=== PATIENT | female | born 1945 | race Caucasian/White ===

== ENCOUNTER 2017-12-17 13:05 | Outpatient (CLI) | payer OTHER | END 2017-12-17 14:00 | disposition home or self-care (01) | LOC: NUCLEAR 13:05 | DX: I73.9 Peripheral vascular disease, unspecified (principal) ==

== ENCOUNTER 2017-12-19 10:49 | Outpatient (CLI) | payer OTHER | END 2017-12-19 11:30 | disposition home or self-care (01) | LOC: NUCLEAR 10:49 | DX: I73.89 Other specified peripheral vascular diseases (principal); I87.2 Venous insufficiency (chronic) (peripheral) ==